=== PATIENT | female | born 1945 | race African-American/Black ===

== ENCOUNTER 2016-11-24 13:02 | Emergency (ER) | payer MEDICARE ==
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
[2016-11-24 14:25] LABS: ABSOLUTE BASOPHILS # (AUTO) 0.1 10^3/uL (0.0-0.2); ABSOLUTE LYMPHOCYTES (AUTO) 2.7 10^3/uL (0.5-4.7); ABSOLUTE MONOCYTES (AUTO) 0.7 10^3/uL (0.1-1.4); ABSOLUTE NEUT (AUTO) 3.2 10^3/uL (1.7-8.2); BASOPHILS % (AUTO) 1.1 % (0-2); EOSINOPHILS % (AUTO) 0.3 % (0-6); HEMATOCRIT 36.4 % (36.0-47.0); HEMOGLOBIN 12.7 g/dL (12.0-15.5); HGB HCT DIFFERENCE 1.7; LYMPHOCYTES % (AUTO) 40.7 % (13-45); MEAN CORPUSCULAR HEMOGLOBIN 32.7 pg (27.0-33.4); MEAN CORPUSCULAR HGB CONC 34.9 g/dL (32.0-36.0); MEAN CORPUSCULAR VOLUME 94 fl (80-97); MONOCYTES % (AUTO) 9.9 % (3-13); RED BLOOD COUNT 3.89 10^6/uL (3.72-5.28); RED CELL DISTRIBUTION WIDTH 13.6 % (11.5-14.0); WHITE BLOOD COUNT 6.6 10^3/uL (4.0-10.5)
[2016-11-24 14:37] LABS: APPEARANCE,URINE SLIGHTLY-CLOUDY; BILIRUBIN,URINE NEGATIVE (NEGATIVE); GLUCOSE, URINE NEGATIVE (NEGATIVE); KETONES,URINE NEGATIVE (NEGATIVE); LEUKOCYTE ESTERASE,URINE TRACE (NEGATIVE); NITRITE,URINE NEGATIVE (NEGATIVE); PROTEIN,URINE NEGATIVE (NEGATIVE); URINE SPECIFIC GRAVITY 1.014; UROBILINOGEN,URINE NEGATIVE mg/dL (<2.0)
[2016-11-24 14:46] LABS: ALANINE AMINOTRANSFERASE 22 U/L (9-52); ALBUMIN 4.6 g/dL (3.5-5.0); ALKALINE PHOSPHATASE 102 U/L (38-126); ANION GAP 18 (5-19); ASPARTATE AMINO TRANSFERASE 23 U/L (14-36); BILIRUBIN,DIRECT 0.3 mg/dL (0.0-0.4); BILIRUBIN,TOTAL 0.8 mg/dL (0.2-1.3); BLOOD UREA NITROGEN 11 mg/dL (7-20); CALCIUM 9.3 mg/dL (8.4-10.2); CARBON DIOXIDE 29 mmol/L (22-30); CHLORIDE 98 mmol/L (98-107); CREATINE KINASE 99 U/L (30-135); CREATININE RESULT 0.92 mg/dL (0.52-1.25); GLUCOSE 110 mg/dL (75-110); POTASSIUM 3.3 mmol/L (3.6-5.0); SODIUM 145.2 mmol/L (137-145); TOTAL PROTEIN 9.5 g/dL (6.3-8.2)
[2016-11-24 14:57] LABS: CREATINE KINASE MB 0.42 ng/mL (<4.55)
[2016-11-24 15:00] LABS: TROPONIN I < 0.012 ng/mL
[2016-11-24 15:39] LABS: URINE BARBITURATES SCREEN NEGATIVE; URINE METHADONE SCREEN NEGATIVE; URINE OPIATES LOW NEGATIVE; URINE PHENCYCLIDINE SCREEN NEGATIVE
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
[2016-11-24] MEDS ORDERED: RISPERIDONE 0.5 MG TAB.RAPDIS PO ONE ×2 (23:03→23:07)
[2016-11-24] MEDS ORDERED: RISPERIDONE 0.25 MG TABLET ONE (23:14)
[2016-11-25] MEDS ORDERED: ACETAMINOPHEN 325 MG TABLET PO ONE (07:38)
[2016-11-25 11:03] VITALS: BP 132/79
[2016-11-25] MEDS ORDERED: TUBERCULIN,PURIF.PROT.DERIV. 5 TU/0.1 ML TEST 1 ML VIAL ID ONE (14:02)
== END 2016-11-25 14:36 ==
LOC: ER 13:02 → EEVIPCON 13:02 → ER 11-25 14:36
DX: G30.8 Other Alzheimer's disease (principal); T74.91XA Unspecified adult maltreatment, confirmed, initial encounter
CPT/HCPCS: 99285; 36415; 82553; 82550; 85025; 80053; 81001; 84484; 80307; 71020; 70450; A9270 ×2; J3490

== ENCOUNTER 2016-11-26 18:14 | Emergency (ER) | payer MEDICARE ==
--- NOTE | 2016-11-26 18:26 | ER Document Report ---
ED Medical Screen (RME) - General Stated Complaint: ANXIETY Notes: 70 yo female brought to ED by family for increased confusion. hx/o dementia. pt was discharged from ER yesterday. Pt hallucinating, not sleeping. Pt getting aggressive with family, trying to climb out the window. TRAVEL OUTSIDE OF THE [place] IN LAST 30 DAYS: No - Related Data Allergies/Adverse Reactions: No Known Allergies Allergy (Unverified 11/24/16 13:47) Past Medical History Renal/ Medical History: Denies: Hx Peritoneal Dialysis
--- NOTE | 2016-11-27 00:01 | ER Document Report ---
ED General - General Mode of Arrival: Ambulatory Information source: Relative - family TRAVEL OUTSIDE OF THE [place] IN LAST 30 DAYS: No - HPI Patient complains to provider of: Confusion Associated symptoms: Other - See above <DONOVAN MIN - Last Filed: 11/27/16 00:28> <JULITO PACE - Last Filed: 11/27/16 03:24> - General Chief Complaint: Altered Mental Status Stated Complaint: Confusion Notes: Patient is a 70 year old female who presents to the emergency department with her family for increased confusion since yesterday. Patient was seen at this facility yesterday for similar complaints, family reports that the confusion and agitation has increased since she was discharged and that the prescribed Risperdal is not helping. Family report that patient tried to escape out the window in the middle of the night yesterday and that they cannot leave her by herself. Per family, patient is supposed to be going to [facility] tomorrow after her TB test has been read. (DONOVAN MIN) - Related Data Allergies/Adverse Reactions: No Known Allergies Allergy (Unverified 11/26/16 23:34) Past Medical History - General Information source: Patient, Relative - Social History Smoking Status: Never Smoker Frequency of alcohol use: None Drug Abuse: None Family History: Reviewed & Not Pertinent Patient has suicidal ideation: No Patient has homicidal ideation: No <DONOVAN MIN - Last Filed: 11/27/16 00:28> Review of Systems - Review of Systems -: Yes ROS unobtainable due to patient's medical condition - confused -: Yes All other systems reviewed and negative <DONOVAN MIN - Last Filed: 11/27/16 00:28> Physical Exam - Vital signs Interpretation: Normal - General General appearance: Appears well, Alert - HEENT Head: Normocephalic, Atraumatic Eyes: Normal Pupils: PERRL - Respiratory Respiratory status: No respiratory distress Chest status: Nontender Breath sounds: Normal Chest palpation: Normal - Cardiovascular Rhythm: Regular Heart sounds: Normal auscultation Murmur: No - Abdominal Inspection: Normal Distension: No distension Bowel sounds: Normal Tenderness: Nontender Organomegaly: No organomegaly - Back Back: Normal, Nontender - Extremities General upper extremity: Normal inspection, Nontender, Normal color, Normal ROM , Normal temperature General lower extremity: Normal inspection, Nontender, Normal color, Normal ROM , Normal temperature, Normal weight bearing. No: Fredis's sign - Neurological Orientation: No: Disoriented to person [place] Coma Scale Eye Opening: Spontaneous Don Coma Scale Verbal: Oriented Don Coma Scale Motor: Obeys Commands [place] Coma Scale Total: 15 Speech: Normal Motor strength normal: LUE, RUE, LLE, RLE Sensory: Normal - Psychological Associated symptoms: Normal mood, Auditory hallucinations - Skin Skin Temperature: Warm Skin Moisture: Dry Skin Color: Normal <JULITO PACE - Last Filed: 11/27/16 03:24> Course <DONOVAN MIN - Last Filed: 11/27/16 00:28> <JULITO PACE - Last Filed: 11/27/16 03:24> - Re-evaluation Re-evalutation: 11/27/16 03:22 Patient with dementia. Patient was brought in because she is been increasingly agitated since her family took her home Thursday night. Patient was given Risperdal which seemed to slow her down but also make her hallucinate. Patient is supposed to go to the [facility] later today. Patient is supposed to have a PPD read after 2 PM. Arm appears well this time. Patient was given Zyprexa and has been asleep since then. I will put consults in for social work and psychology to see her for medical recommendation and needs assessment. Family agrees with this plan. Medically stable. (JULITO PACE) Discharge <DONOVAN MIN - Last Filed: 11/27/16 00:28> <JULITO PACE - Last Filed: 11/27/16 03:24> - Discharge Clinical Impression: Dementia Qualifiers: Dementia type: unspecified type Dementia behavioral disturbance: with behavioral disturbance Qualified Code(s): F03.91 - Unspecified dementia with behavioral disturbance Condition: Stable Disposition: HOME-SNF (ED ONLY) Scribe Attestation: 11/27/16 03:24 I personally performed the services described in the documentation, reviewed and edited the documentation which was dictated to the scribe in my presence, and it accurately records my words and actions. (JULITO PACE) Scribe Documentation - Scribe Written by Scribe:: sunny Weston, 11/27/16, 0032 acting as scribe for :: John <DONOVAN MIN - Last Filed: 11/27/16 00:28>
[2016-11-27] MEDS ORDERED: OLANZAPINE 5 MG TAB.RAPDIS PO ONE (00:02)
--- NOTE | 2016-11-27 10:03 | ER Document Report ---
Doctor's Note Notes: 11/27/16 10:02 This is a 70-year-old female with a history of dementia. Chart is reviewed. Patient has had increasing effusion related to her dementia and yesterday tried to escape by climbing out the window. Family is therefore concerned to leave her alone. Patient reportedly has placement at [facility] later today after negative PPD confirmed. She is medically stable for transfer discharge at this time.
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
[2016-11-27 10:43] LABS: APPEARANCE,URINE CLEAR; BILIRUBIN,URINE NEGATIVE (NEGATIVE); GLUCOSE, URINE NEGATIVE (NEGATIVE); KETONES,URINE NEGATIVE (NEGATIVE); LEUKOCYTE ESTERASE,URINE SMALL (NEGATIVE); NITRITE,URINE NEGATIVE (NEGATIVE); PROTEIN,URINE NEGATIVE (NEGATIVE); URINE SPECIFIC GRAVITY 1.011; UROBILINOGEN,URINE NEGATIVE mg/dL (<2.0)
[2016-11-27 10:44] LABS: ABSOLUTE LYMPHOCYTES (AUTO) 1.7 10^3/uL (0.5-4.7); ABSOLUTE MONOCYTES (AUTO) 0.7 10^3/uL (0.1-1.4); ABSOLUTE NEUT (AUTO) 3.2 10^3/uL (1.7-8.2); BASOPHILS % (AUTO) 0.8 % (0-2); EOSINOPHILS % (AUTO) 0.6 % (0-6); HEMATOCRIT 35.9 % (36.0-47.0); HEMOGLOBIN 12.1 g/dL (12.0-15.5); HGB HCT DIFFERENCE 0.4; LYMPHOCYTES % (AUTO) 30.7 % (13-45); MEAN CORPUSCULAR HEMOGLOBIN 31.4 pg (27.0-33.4); MEAN CORPUSCULAR HGB CONC 33.7 g/dL (32.0-36.0); MEAN CORPUSCULAR VOLUME 93 fl (80-97); MONOCYTES % (AUTO) 12.3 % (3-13); RED BLOOD COUNT 3.85 10^6/uL (3.72-5.28); RED CELL DISTRIBUTION WIDTH 13.6 % (11.5-14.0); SEGMENTED NEUTROPHILS % (AUTO) 55.6 % (42-78); WHITE BLOOD COUNT 5.7 10^3/uL (4.0-10.5)
[2016-11-27 10:45] LABS: PROTHROMBIN TIME 14.1 SEC (11.4-15.4)
[2016-11-27 10:46] LABS: PARTIAL THROMBOPLASTIN TIME 37.9 SEC (23.5-35.8)
[2016-11-27 10:53] LABS: ALANINE AMINOTRANSFERASE 21 U/L (9-52); ALBUMIN 4.3 g/dL (3.5-5.0); ALKALINE PHOSPHATASE 92 U/L (38-126); ANION GAP 12 (5-19); ASPARTATE AMINO TRANSFERASE 20 U/L (14-36); BILIRUBIN,DIRECT 0.1 mg/dL (0.0-0.4); BILIRUBIN,TOTAL 0.9 mg/dL (0.2-1.3); BLOOD UREA NITROGEN 12 mg/dL (7-20); CALCIUM 9.6 mg/dL (8.4-10.2); CARBON DIOXIDE 33 mmol/L (22-30); CHLORIDE 102 mmol/L (98-107); GLUCOSE 114 mg/dL (75-110); POTASSIUM 3.7 mmol/L (3.6-5.0); SODIUM 146.7 mmol/L (137-145); TOTAL PROTEIN 8.7 g/dL (6.3-8.2)
[2016-11-27 10:55] LABS: ALCOHOL < 10 mg/dL (NONE DETECTED)
[2016-11-27 11:03] LABS: URINE BARBITURATES SCREEN NEGATIVE; URINE METHADONE SCREEN NEGATIVE; URINE OPIATES LOW NEGATIVE; URINE PHENCYCLIDINE SCREEN NEGATIVE
[2016-11-27] MEDS ORDERED: CLONIDINE HCL 0.1 MG TABLET PO PRN (13:40)
[2016-11-27] MEDS: DIVALPROEX SODIUM 250 MG TAB.SR.24H PO SCH (18:28)
[2016-11-27] MEDS: BUSPIRONE HCL 10 MG TABLET PO SCH (21:23)
--- NOTE | 2016-11-28 09:46 | ER Document Report ---
Doctor's Note Notes: 11/28/16 09:43 Patient evaluated this morning in chart reviewed. The plan yesterday was for the patient be discharged with family while awaiting evaluation for possible placement at [facility]. However this did not happen last night and patient is still awaiting evaluation by [facility] which will happen later today. There were no acute issues overnight. Patient has no complaints this morning. She is pleasant and states that she slept well and tolerated breakfast well. Her blood pressures have been noted to be borderline high and we will continue to monitor. She does have when necessary clonidine ordered for hypertension. Will proceed with social media marketer consultation and recommendations this morning. 11/28/16 16:26 Patient noted to frequently be wandering out of her room and down the hallway of the ER. She is very pleasant but confused and states that she needs the keys to her car. She is redirectable and walked back to her room. Family is in route to take the patient home tonight. 11/28/16 21:43 Long discussion with pt's niece who is adamant that she is not comfortable taking patient home and will not take patient home, because she is unable to provide 24 hour supervision and is afraid pt will try to climb out the window again or fall down the stairs. Multiple discussions today with social media marketer and [facility] to continue to arrange placment.
[2016-11-28] MEDS: DIVALPROEX SODIUM 250 MG TAB.SR.24H PO SCH ×2 (10:28→16:40)
[2016-11-28] MEDS ORDERED: LORAZEPAM 1 MG TABLET PO ONE (16:25)
[2016-11-28] MEDS: BUSPIRONE HCL 10 MG TABLET PO SCH (22:00)
--- NOTE | 2016-11-29 00:02 | ER Document Report ---
Doctor's Note Notes: 11/29/16 00:01 I did speak with Dr. Rao, hospitalist on-call, about possibly admitting the patient for social admit being that they will not placement for her until Thursday. He said at this time they do not really have the capacity to admits the patient for social admission and requested we keep the patient in the ER until placement on Thursday to a facility is obtained.
[2016-11-29] MEDS: DIVALPROEX SODIUM 250 MG TAB.SR.24H PO SCH ×2 (10:28→17:45)
--- NOTE | 2016-11-29 11:05 | ER Document Report ---
Doctor's Note Notes: 11/29/16 11:04 Medical rounds: Chart reviewed and patient interviewed briefly. Patient denies somatic complaints, says she had a headache last night but it is now resolved. Vital signs are normal. Laboratory values are satisfactory. Patient is alert, oriented, and cooperative. She is medically stable. I am told that she has been cleared psychiatrically, and discharge planning is now working on placement. 11/29/16 11:06
[2016-11-29] MEDS: BUSPIRONE HCL 10 MG TABLET PO SCH (22:45)
[2016-11-29] MEDS ORDERED: HALOPERIDOL LACTATE INJ 5 MG/1 ML VIAL IM ONE (23:20)
[2016-11-29] MEDS ORDERED: LORAZEPAM INJ 2 MG/1 ML VIAL IM ONE (23:21)
[2016-11-30] MEDS: DIVALPROEX SODIUM 250 MG TAB.SR.24H PO SCH ×2 (10:55→17:54)
[2016-11-30] MEDS ORDERED: IBUPROFEN 600 MG TABLET PO ONE (20:43)
[2016-11-30] MEDS: BUSPIRONE HCL 10 MG TABLET PO SCH (21:10)
--- NOTE | 2016-11-30 21:31 | ER Document Report ---
Doctor's Note Notes: 11/30/16 21:30 patient seen and evaluated throughout the day no acute medical concerns. Awaiting placement of the patient, and evaluation from case management social work.
[2016-12-01] MEDS: DIVALPROEX SODIUM 250 MG TAB.SR.24H PO SCH ×2 (10:01→18:42)
--- NOTE | 2016-12-01 17:40 | ER Document Report ---
Doctor's Note Notes: 12/01/16 17:39 Rounds: Chart reviewed and patient interviewed. Patient is very pleasant individual. Vital signs all been essentially normal. Initial lab studies were also essentially normal. Patient appears to be medically stable for transfer or discharge. Eric Ayon M.D.
[2016-12-01] MEDS: BUSPIRONE HCL 10 MG TABLET PO SCH (22:13)
[2016-12-02] MEDS: DIVALPROEX SODIUM 250 MG TAB.SR.24H PO SCH (12:11)
--- NOTE | 2016-12-02 12:48 | ER Document Report ---
Doctor's Note Notes: 12/02/16 12:47 Provider note: This is a 70-year-old female brought into the emergency room on November 26 for confusion, anxiety and attempt at elopement from the house in the setting of dementia. The patient has been in the emergency room being observed since. She 's been cleared medically and has been followed by psychiatry and is cleared from a psychiatric point of view. Challenge with this patient has been intermediate care in the setting of dementia. At this point, we are awaiting disposition via case management. 12/02/16 17:01 Note: The patient's nephew is here (Wong) and he requests taking the patient home. The patient is ambulating around the room and is happy at the thought of going home and she looks quite good at this time. Adult Protective Services were involved with this patient and they are aware that she is going home. I have spoken to the nephew and we are sending the patient home with [facility] (scripts given). I have given him a copy of today's labs to follow up with the primary care doctor.
[2016-12-02 17:58] VITALS: BP 141/68
== END 2016-12-02 17:00 ==
LOC: ER 18:14 → EEVIPCON 18:14 → ER 12-02 17:00
DX: F41.9 Anxiety disorder, unspecified (principal); R41.0 Disorientation, unspecified; F03.91 Unspecified dementia, unspecified severity, with behavioral disturbance; R41.9 Unspecified symptoms and signs involving cognitive functions and awareness
CPT/HCPCS: 99285; 96372; 36415; 80307 ×4; 85025; 85610; 85730; 80053; 81001; A9270 ×13; J1630; J2060; J3490